=== PATIENT | male | born 1950 | race Caucasian/White ===

== ENCOUNTER 2017-09-21 07:03 | Outpatient (CLI) | payer MEDICARE, OTHER ==
--- NOTE | 2017-09-21 07:34 | ULT ---
SONOGRAM ABDOMINAL AORTA: HISTORY: Aneurysm screening. FINDINGS: Calcifications apparent within the aorta. Mid abdominal aorta is 1.7 cm. Good color and spectral Do ppler flow. IMPRESSION: Atherosclerosis. No sonographic evidence of abdominal aortic aneurysm. POS: SHAR
== END 2017-09-21 07:04 | disposition home or self-care (01) ==
LOC: ULT 07:03
PROVIDERS: ATTEND Family Medicine
DX: Z00.00 Encounter for general adult medical examination without abnormal findings (principal); Z13.6 Encounter for screening for cardiovascular disorders; I70.0 Atherosclerosis of aorta
CPT/HCPCS: 76775

== ENCOUNTER 2019-09-12 14:39 | Outpatient (CLI) | payer MEDICARE | END 2019-09-12 14:40 | disposition home or self-care (01) | LOC: CTENTCT 14:39 | PROVIDERS: ATTEND Otolaryngology Plastic Surgery within the Head & Neck | DX: J32.9 Chronic sinusitis, unspecified (principal) | CPT/HCPCS: 70486 ==

== ENCOUNTER 2019-09-23 14:47 | Outpatient (CLI) | payer MEDICARE ==
--- NOTE | 2019-09-23 15:16 | ULT ---
Testicular sonogram with duplex evaluation HISTORY: Left scrotal lump. FINDINGS: Right testicle measures up to 4.4 cm and left is 4.5 cm. Each has a normal appearance with good color and spectral Doppler flow. Small amount of microcalcifications in the right epididymis. Small amount of fluid within the right side of the scrotum. Within the left side of the scrotum, a few mildly distended venous structures becomes slightly more e ngorged upon Valsalva. IMPRESSION: Small left varicocele may account for the palpable lesion. No evidence of testicular mass or torsion. Small right hydrocele, a nonspecific finding.
== END 2019-09-23 14:48 | disposition home or self-care (01) ==
LOC: BICULT 14:47
PROVIDERS: ATTEND Family Medicine
DX: N50.89 Other specified disorders of the male genital organs (principal); I86.1 Scrotal varices; N43.3 Hydrocele, unspecified
CPT/HCPCS: 76870; 93976

== ENCOUNTER 2019-09-28 10:32 | Day surgery (SDC) | payer MEDICARE ==
[2019-09-27 15:03] VITALS: BMI 25.7
[~2019-09-28 10:32] MED LIST: Dexamethasone 20 MG/5 ML VIAL ONE; EPHEDRINE 25 MG/5 ML SYRINGE ONE; Lidocaine 1% PF 5 ML VIAL ONE; Ondansetron PF 4 MG/2 ML Vial ONE; PHENYLEPHRINE-NS 100 MCG/ML 10 ML SYRINGE ONE; PROPOFOL 200 MG/20 ML VIAL ONE; Succinylcholine Chloride 20 MG/ML 10 ml SYRINGE FS ONE
[2019-09-28] MEDS ORDERED: AFRIN NASAL MIST 15 ML BOT ONE ×2 (10:49→12:07)
[2019-09-28 11:07] LABS: Hemoglobin 13.5 g/dL (14.0-18.0); Platelet Count 210 thou/uL (130-400)
[2019-09-28 11:20] LABS: Anion Gap 12 mmol/L (10-20); BUN (Urea Nitrogen) 15 mg/dL (8.4-25.7); Calc. Creatinine Clearance 64 mL/min (70-130); Carbon Dioxide 27 mmol/L (23-31); Chloride 106 mmol/L (98-107); Estimated GFR-MDRD 57; Glucose 100 mg/dL (83-110); Potassium 4.3 mmol/L (3.5-5.1); Sodium 141 mmol/L (136-145)
[2019-09-28] MEDS ORDERED: Bacitracin Zinc Ointment 30 gm TUBE ONE (12:07)
[2019-09-28] MEDS ORDERED: Lidocaine 1% w/Epinephrine 1:100K 20 ML VIAL ONE (12:07)
[2019-09-28] MEDS ORDERED: Fentanyl 100 MCG/2 ML VIAL ONE (12:40)
[2019-09-28] MEDS ORDERED: Labetalol HCl 100 MG/20 ML VIAL ONE (13:57)
[2019-09-28] MEDS ORDERED: HYDROcodone/Acetaminophen 5/325 mg Tablet ONE (15:37)
--- NOTE | 2019-09-29 09:29 | OP ---
DATE OF PROCEDURE: 09/28/2019 PREOPERATIVE DIAGNOSES: 1. Chronic rhinosinusitis. 2. Nasal septal deviation. 3. Bilateral inferior turbinate hypertrophy. 4. Acquired nasal deformity. 5. 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 6. Nasal obstruction. POSTOPERATIVE DIAGNOSES: 1. Chronic rhinosinusitis. 2. Nasal septal deviation. 3. Bilateral inferior turbinate hypertrophy. 4. Acquired nasal deformity. 5. 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 6. Nasal obstruction. PROCEDURES PERFORMED: 1. Bilateral endoscopic sinus surgery, total ethmoidectomies with removal of tissue, including sphenoidotomies. 2. Bilateral endoscopic sinus surgery, frontal sinusotomies. 3. Bilateral endoscopic sinus surgery, maxillary antrostomies. 4. Nasoseptoplasty. 5. Bilateral inferior turbinate submucosal resection. 6. Bilateral repair of nasal wall defects. ESTIMATED BLOOD LOSS: 20 mL. COMPLICATIONS: None. ANESTHESIA: GETA. PROCEDURE IN DETAIL: Patient was taken to the operating room and placed supine on the table. General endotracheal anesthesia was obtained by the anesthesia staff. Then 1% lidocaine with 1:100,000 epinephrine was injected into the nasal septum as well as the inferior turbinates. The patient was prepped and draped in standard surgical fashion. The Afrin pledgets were then removed. A [place] incision was made on the left nasal septum. Submucoperichondrial dissection was performed bilaterally of the deviated portions of the septum, which included the maxillary crest and the crest deviation, as well as the mid portion of the septum. Cartilage and bony deviation was removed, leaving a generous caudal and dorsal strut. Any straight pieces of cartilage were then placed within the cartilage press, pressed, straightened, and then placed between the mucoperichondrial flaps, which were then closed using a 4-0 gut stitch. The inferior turbinates were then punctured with the submucosal Coblation machine, and 3 separate coblations were delivered to the anterior inferior portion of the inferior turbinates. Following this, the nasal cavity was irrigated. All debris was removed. An orogastric tube was placed. Gastric contents and Vásquez splints were then placed in the nasal cavity and sutured with a 3-0 silk stitch. Following this, 1% lidocaine with 1:100,000 epinephrine were injected into the middle turbinates and lateral nasal wall bilaterally. Following this, the 0-degree endoscope was used to visualize the middle turbinate and the middle turbinate was medially fractured using a [place] elevator. Following this, the uncinate process was identified and was examined. The uncinate process was noted to be inflamed and laterally displaced bilaterally. Following this, a ball-ended probe was used to anteriorly fracture the uncinate process bilaterally. Following this, the 0-degree microdebrider and the up-biting [place]akes[place] forceps were used to remove the uncinate process bilaterally. Following this, the natural maxillary sinus ostia was identified with the 0-degree endoscope and the ball-ended probe. The natural maxillary ostia were then widened using a 40-degree microdebrider and the straight [place]akes[place] forceps bilaterally. Following this, the ethmoidal bulla was identified bilaterally. A 0-degree microdebrider was used to puncture the ethmoidal bulla on its medial and inferior aspect bilaterally. Following this, the 0-degree microdebrider and the up-biting [place]akesley forceps were used to remove the ethmoidal bulla. Following this, the grand lamella was identified posterior to this area and was punctured using the 0-degree microdebrider bilaterally. Following this, the ethmoidal cells were opened from the posterior to the anterior using the 0-degree microdebrider, the 40-degree microdebrider and the up-biting Blakesley forceps bilaterally. Following this, the 45-degree endoscope and the 40-degree microdebrider blade were used to further remove the anterior ethmoidal cells to the level of the frontal sinus recess bilaterally. Following this, the 0-degree endoscope was advanced through the previous ethmoidectomies, where more tissue and necrotic bone was removed using the 0-degree microdebrider and the straight Blakesley forceps. This anterior sphenoid sinus wall was identified and was punctured into the sphenoid sinuses using the microdebrider bilaterally. The sphenoidotomies were then widened in a medial and inferior direction using the microdebrider bilaterally. Following this, 45-degree endoscope and the 40-degree microdebrider blade were used to further open the frontal recess cells and expose the frontal sinus ostia bilaterally. Following this, frontal sinus ostia were then widened using a 40-degree microdebrider blade bilaterally. Following this, a small incision was made into the nasal cavity in a transcartilaginous area in order to approach the lateral nasal wall and nasal bones. After the implant was then placed to support in an overlay fashion over the nasal bones supporting the lower lateral cartilages in lateral direction bilaterally. Following this, the incision was closed with a 6-0 chromic gut stitch. Following this, nasal cavity was irrigated. NasoPore packing was placed within the middle meatus. Vásquez splints were placed and secured. Job ID: [id number]
== END 2019-09-28 16:35 | disposition home or self-care (01) ==
LOC: SDC 10:32
PROVIDERS: ATTEND Otolaryngology Plastic Surgery within the Head & Neck
PROC: 09TL0ZZ Resection of Nasal Turbinate, Open Approach (ICD-10-PCS; principal; 2019-09-28)
PROC: 09SM0ZZ Reposition Nasal Septum, Open Approach (ICD-10-PCS; 2019-09-28)
PROC: 099T8ZZ Drainage of Left Frontal Sinus, Via Natural or Artificial Opening Endoscopic (ICD-10-PCS; 2019-09-28)
PROC: 099Q8ZZ Drainage of Right Maxillary Sinus, Via Natural or Artificial Opening Endoscopic (ICD-10-PCS; 2019-09-28)
PROC: 099R8ZZ Drainage of Left Maxillary Sinus, Via Natural or Artificial Opening Endoscopic (ICD-10-PCS; 2019-09-28)
PROC: 099S8ZZ Drainage of Right Frontal Sinus, Via Natural or Artificial Opening Endoscopic (ICD-10-PCS; 2019-09-28)
PROC: 09BX8ZZ Excision of Left Sphenoid Sinus, Via Natural or Artificial Opening Endoscopic (ICD-10-PCS; 2019-09-28)
PROC: 09BW8ZZ Excision of Right Sphenoid Sinus, Via Natural or Artificial Opening Endoscopic (ICD-10-PCS; 2019-09-28)
PROC: 09TV8ZZ Resection of Left Ethmoid Sinus, Via Natural or Artificial Opening Endoscopic (ICD-10-PCS; 2019-09-28)
PROC: 09TU8ZZ Resection of Right Ethmoid Sinus, Via Natural or Artificial Opening Endoscopic (ICD-10-PCS; 2019-09-28)
PROC: 09QK0ZZ Repair Nasal Mucosa and Soft Tissue, Open Approach (ICD-10-PCS; 2019-09-28)
DX: J32.9 Chronic sinusitis, unspecified (principal); J34.2 Deviated nasal septum; J34.3 Hypertrophy of nasal turbinates; J34.89 Other specified disorders of nose and nasal sinuses; I10 Essential (primary) hypertension; Z87.891 Personal history of nicotine dependence; Z79.899 Other long term (current) drug therapy
CPT/HCPCS: 36415; 80048; 85014; 85018; 85049; 93005; 93010; J1100; J2001; J2405; J2704; J3010

== ENCOUNTER 2020-02-03 20:48 | Observation (INO) | payer MEDICARE, OTHER ==
--- NOTE | 2020-02-03 21:55 | CT ---
CT HEAD WITHOUT CONTRAST: 02/03/20 INDICATIONS: Dizziness. Ventricles have normal size and position. No evidence of intracranial mass, hemorrhage or infarct. Si nuses are clear. No significant white matter abnormality. IMPRESSION: Unremarkable CT head. POS: AGW
[2020-02-03 21:56] LABS: #Eosinphils 0.2 thou/uL (0.0-0.7); #Lymphocytes 2.2 thou/uL (1.20-3.40); #Monocytes 0.5 thou/uL (0.11-0.59); #Neutrophils 5.9 thou/uL (1.40-6.50); %Basophils 0.4 % (0.0-1.0); %Eosinophils 1.9 % (0.0-10.0); %Lymphocytes 25.5 % (21.0-51.0); %Monocytes 5.6 % (0.0-10.0); %Neutrophils 66.6 % (42.0-75.0); Hemoglobin 13.4 g/dL (14.0-18.0); Mean Corpuscular HGB CONC 33.6 g/dL (32.0-36.0); Mean Corpuscular Hemoglobin 29.7 pg (27.0-31.0); Mean Corpuscular Volume 88.3 fL (78.0-98.0); Mean Platelet Volume 7.8 fL (7.4-10.4); Platelet Count 213 thou/uL (130-400); RBC Distribution Width 12.3 % (11.5-14.5); Red Blood Cell (RBC) Count 4.51 mill/uL (4.70-6.10); White Blood Cell (WBC) Count 8.8 thou/uL (4.8-10.8)
--- NOTE | 2020-02-03 21:58 | RAD ---
PA CHEST: 02/03/20 INDICATIONS: Dizziness. Borderline cardiomegaly. The lungs appear clear of infiltrate. Heart and mediastinum unremarkable. IMPRESSION: No acute lung process. POS: AGW
[2020-02-03 22:18] LABS: ALT (SGPT) 21 U/L (8-55); AST (SGOT) 22 U/L (5-34); Albumin 4.3 g/dL (3.4-4.8); Alkaline Phosphatase 113 U/L (40-110); Anion Gap 14 mmol/L (10-20); BUN (Urea Nitrogen) 24 mg/dL (8.4-25.7); Bilirubin, Total 0.2 mg/dL (0.2-1.2); CK (CPK) 80 U/L (30-200); Calc. Creatinine Clearance 0 mL/min (70-130); Calcium 8.8 mg/dL (7.8-10.44); Carbon Dioxide 27 mmol/L (23-31); Chloride 103 mmol/L (98-107); Estimated GFR-MDRD 47; Globulin 2.1 g/dL (2.4-3.5); Glucose 149 mg/dL (83-110); Lipase 34 U/L (8-78); Potassium 4.6 mmol/L (3.5-5.1); Protein, Total 6.4 g/dL (5.8-8.1); Sodium 139 mmol/L (136-145)
[2020-02-04] MEDS ORDERED: Aspirin 325 MG TAB ONE (00:32)
[2020-02-04 00:52] LABS: Bilirubin Negative (Negative); Blood, Urine Negative (Negative); Clarity Clear (Clear); Glucose, Urine (Dipstick) Normal (Negative); Ketone, Urine Negative (Negative); Leukocyte Negative Leu/uL (Negative); Nitrite Negative (Negative); Protein, Urine (Dipstick) Negative (Neg-Trace); Specific Gravity, Urine 1.021 (1.002-1.036); Urobilinogen Normal mg/dL (Less than 2); pH, Urine 6.5 (5.0-9.0)
[2020-02-04] MEDS ORDERED: Acetaminophen 325 MG TAB PO PRN (01:44)
[2020-02-04] MEDS ORDERED: Acetaminophen 650 MG Suppository PR PRN (01:44)
[2020-02-04] MEDS ORDERED: Sodium Chloride 0.9% 1,000 ML IV SCH (01:45)
[2020-02-04 02:23] LABS: Troponin I 0.012 ng/mL (< 0.028)
--- NOTE | 2020-02-04 03:15 | HP ---
TIME OF ASSESSMENT: 0100 hours. PRIMARY CARE PHYSICIAN: Dr. Nicolas Torres. CHIEF COMPLAINT: Dizziness. HISTORY OF PRESENT ILLNESS: Mr. Rausch is a 70-year-old gentleman who states that he was at [employer] and sat down next to his when he developed sudden onset of dizziness. He states the lights in the [employer] were spinning around him, and he turned to his after a few minutes and attempted to let her know he needed help getting back to his car. The patient states he had difficulty finding his words for the first few seconds, and then eventually was able to communicate with his . Denies having any slurred speech or difficulty finding his words. Denies any extremity numbness or weakness. He was unable to walk without assistance. His gait was off. He states the symptoms as well as the dizziness and nausea persisted for approximately 3 hours. He had to close his eyes while in route to the hospital to avoid spinning lights around him. Denies any vomiting. Reports a very mild headache. No abdominal pain. No recent fevers, chills, or sweats. All other review of systems are negative. EMERGENCY DEPARTMENT COURSE: In the emergency department, the patient had an EKG done, showed normal sinus rhythm with heart rate of 59. No ST changes or T-wave abnormalities. Laboratory studies done showing white count of 8.8, hemoglobin 13.4, hematocrit 39.8. Sodium 139, potassium 4.6, BUN 24, creatinine 1.46, GFR 47, glucose 149. LFTs unremarkable. Alkaline phosphatase 113. Albumin 4.3. Troponin negative. IMAGING DATA: CT of the brain done 02/03/2020, demonstrated unremarkable CT head. The patient was given 325 mg of aspirin and admitted for further CVA/TIA workup. PAST MEDICAL HISTORY: Hypertension. PAST SURGICAL HISTORY: 1. Tonsillectomy. 2. Facial surgery. 3. Sinus surgery. SOCIAL HISTORY: The patient denies any tobacco use, alcohol consumption, or illicit drug use. FAMILY HISTORY: Noncontributory. ALLERGIES: NO KNOWN DRUG ALLERGIES. CURRENT MEDICATIONS: Lisinopril. PHYSICAL EXAMINATION: GENERAL: The patient appears well developed, well nourished. He is in no acute distress. VITAL SIGNS: Temperature 97.6, pulse 60, blood pressure 174/91, respirations 16, and O2 saturation 99% on room air. HEENT: Normocephalic and atraumatic. Pupils are equal, round, reactive to light. Extraocular movements intact. Peripheral kaplan intact. Oropharynx is clear. NECK: Supple. LUNGS: Clear to auscultation bilaterally without any wheezes, rales, rhonchi. CARDIAC: Regular rate and rhythm. ABDOMEN: Soft, nontender, nondistended. Normoactive bowel sounds present. No guarding or rigidity. No renal angle tenderness. EXTREMITIES: No lower leg swelling or edema. NEUROLOGIC: Alert and oriented x3. SKIN: Warm and dry. NEUROLOGIC: Alert and oriented x3. No neuro deficits on exam. Power 5/5 in all limbs. INVESTIGATIONS: As mentioned above in HPI. IMPRESSION AND PLAN: Mr. Rausch is a pleasant 70-year-old gentleman, who is being admitted for management of the following. 1. Transient ischemic attack, rule out. The patient with dizziness, described as spinning sensation and nausea that lasted approximately 3 hours. He is being admitted for transient ischemic attack workup. We will have echo, carotid Doppler, and brain imaging. Consult placed to Neurology. The patient is asymptomatic at present. 2. Hypertension. Monitor blood pressure and reconcile home medications once verified. 3. Acute kidney injury. Creatinine 1.46 compared to 1.25 in September. We will give gentle hydration. Continue to monitor renal function. Obtain orthostatic blood pressures. 4. Gastrointestinal prophylaxis with famotidine. 5. Deep venous thrombosis prophylaxis with mechanical sequential compression devices. 6. Full code status. Surrogate decision maker is his , Vania Rausch. Case was discussed with attending who agrees with plan of care as described above. Job ID: [id number]
[2020-02-04 03:55] VITALS: BMI 25.9
[2020-02-04 05:02] LABS: #Basophils 0.1 thou/uL (0.0-0.2); #Eosinphils 0.1 thou/uL (0.0-0.7); #Monocytes 0.6 thou/uL (0.11-0.59); #Neutrophils 6.3 thou/uL (1.40-6.50); %Basophils 0.8 % (0.0-1.0); %Eosinophils 0.6 % (0.0-10.0); %Monocytes 6.3 % (0.0-10.0); %Neutrophils 70.4 % (42.0-75.0); Hemoglobin 12.7 g/dL (14.0-18.0); Mean Corpuscular HGB CONC 32.9 g/dL (32.0-36.0); Mean Corpuscular Hemoglobin 29.3 pg (27.0-31.0); Mean Corpuscular Volume 89.2 fL (78.0-98.0); Mean Platelet Volume 7.8 fL (7.4-10.4); Platelet Count 201 thou/uL (130-400); RBC Distribution Width 12.4 % (11.5-14.5); Red Blood Cell (RBC) Count 4.32 mill/uL (4.70-6.10); White Blood Cell (WBC) Count 8.9 thou/uL (4.8-10.8)
[2020-02-04 05:22] LABS: Anion Gap 10 mmol/L (10-20); BUN (Urea Nitrogen) 23 mg/dL (8.4-25.7); Calc. Creatinine Clearance 66 mL/min (70-130); Carbon Dioxide 28 mmol/L (23-31); Cardiac Risk 5.4 (Less than 4.5); Chloride 105 mmol/L (98-107); Cholesterol 211 mg/dl (< 200 Desired); Estimated GFR-MDRD 60; Glucose 110 mg/dL (83-110); HDL Cholesterol 39 mg/dL (>60 Neg Risk); LDL Cholesterol, Calculated 154 mg/dL; Potassium 4.7 mmol/L (3.5-5.1); Sodium 138 mmol/L (136-145); Triglycerides 90 mg/dL (Less than 150)
[2020-02-04 05:29] LABS: Troponin I 0.017 ng/mL (< 0.028)
[2020-02-04 06:37] LABS: Bacteria/HPF None Seen HPF (None Seen); Bilirubin Negative (Negative); Blood, Urine Negative (Negative); Clarity Clear (Clear); Glucose, Urine (Dipstick) Normal (Negative); Ketone, Urine Negative (Negative); Leukocyte Negative Leu/uL (Negative); Mucous/LPF 1+ LPF (<2+); Nitrite Negative (Negative); Protein, Urine (Dipstick) Negative (Neg-Trace); RBC/HPF 0-3 HPF (0-3); Specific Gravity, Urine 1.021 (1.002-1.036); Squamous Epithelial None Seen HPF (0-3); Urobilinogen Normal mg/dL (Less than 2); WBC/HPF 0-3 HPF (0-3); pH, Urine 6.5 (5.0-9.0)
[2020-02-04 06:41] LABS: Urine Culture Reflex No No
[2020-02-04] MEDS ORDERED: Famotidine 20 MG TAB PO SCH (09:00)
[2020-02-04] MEDS ORDERED: Aspirin 81 mg Enteric Coated Tablet PO SCH (09:00)
--- NOTE | 2020-02-04 11:34 | RAD ---
HANLEY VIEW OF SKULL: HISTORY: MRI clearance. FINDINGS: Sinuses are clear. There is a very small radiopaque foreign body along the superior-most aspect of t he left frontal sinus in the frontal bone region remote from the orbit. No additional foreign bodies are seen. IMPRESSION: Small metallic foreign body along the superior aspect of the left frontal sinus. POS: OFF
--- NOTE | 2020-02-04 11:39 | MRI ---
MRI OF BRAIN PERFORMED WITHOUT CONTRAST ENHANCEMENT: HISTORY: TIA. Syncope. COMPARISON: CT examination done yesterday. FINDINGS: There is mild ventricular and sulcal prominence. Artifact related to the metal over the left frontal sinus region does slightly degrade detail in this area. No hemorrhage or mass effect identified. T he diffusion weighted sequence did not show any evidence for acute infarct. Pituitary region appears unremarkable. Visualized sinuses are clear. IMPRESSION: No acute intracranial abnormalities. POS: OFF
[2020-02-04 12:49] LABS: SARS-CoV-2 MS2 Positive; SARS-CoV-2 N Gene Negative; SARS-CoV-2 S Gene Negative; SARS-CoV-2 by NAA Not Detected (NotDetected); SARS-CoV-2 orf1ab Negative
--- NOTE | 2020-02-04 12:50 | ULT ---
CAROTID DUPLEX ULTRASOUND: INDICATION: Evaluate for TIA. COMPARISON: None. FINDINGS: There is mild intimal thickening of the common carotid arteries bilaterally. Peak systolic velocity in the right ICA is 56.7 cm/s and the right CCA is 68.4 cm/s. Right IC:CC rat io is 0.83. Peak systolic velocity in the left ICA is 50.1 cm/s and the left CCA is 92.9 cm/s. Left IC:CC ratio is 0.54. Antegrade flow is seen within both vertebral arteries. IMPRESSION: No hemodynamically significant stenosis. POS: BH
--- NOTE | 2020-02-04 13:08 | CON ---
NEUROLOGY CONSULTATION DATE OF CONSULTATION: 02/04/2020 REASON FOR CONSULTATION: Transient ischemic attack. HISTORY OF PRESENT ILLNESS: Mr. Bill Rausch is a 70-year-old male, with medical history significant for hypertension, presented to the emergency room with a spell of acute dizziness. Per the patient, he was at a [employer] and was sitting down with his when he developed acute onset dizziness as if the room is spinning in front of his eyes. He told his that he needs help getting to the car. The spell lasted for about 2 hours, and during that time, he has difficulty finding words for few seconds and was unable to communicate with his properly for first few seconds and those symptoms resolved, but the sensation of room spinning in front of his eyes with nausea persisted for about 3 hours. He had to close his eyes and brought to the hospital because of this sensation. The patient denies any focal paresthesias, focal weakness,, nausea, vomiting, headache, chest pain, abdominal pain, blurred vision, loss of vision, loss of consciousness, or chest pain associated with this episode. In the emergency room, the patient had a head CT, which was unremarkable for acute intracranial process. Labs were essentially unremarkable. He was given 325 mg of aspirin and admitted for further evaluation of transient ischemic attack. REVIEW OF SYSTEMS: All 10 systems were reviewed and were negative except pertinent positives and negatives mentioned in the HPI. PAST MEDICAL HISTORY: Hypertension. PAST SURGICAL HISTORY: Facial surgery, sinus surgery, tonsillectomy. SOCIAL HISTORY: and lives with his . Denies smoking, alcohol, or illegal drug use. FAMILY HISTORY: No significant family history. ALLERGIES: NO KNOWN DRUG ALLERGIES. CURRENT HOME MEDICATIONS: Lisinopril. PHYSICAL EXAMINATION: VITAL SIGNS: Blood pressure was 170/90, pulse 80, respiratory rate 18. GENERAL: Alert and awake male, in no acute distress. CVS: Regular rate and rhythm. CHEST: Clear. ABDOMEN: Soft. NECK: Supple. NEUROLOGIC: Mental status, the patient is alert and oriented to person, place, and time. Speech is clear. Fund of knowledge is appropriate. Recent and remote memory, intact. Cranial nerves 2 through 12 are intact. Motor, muscle tone and bulk are normal. Strength 5/5 bilaterally. Sensory intact. Cerebellar, finger-nose testing intact. Gait deferred due to the patient's safety reasons. DATA REVIEWED: I reviewed the head CT, which was negative for acute intracranial pathology. Labs were essentially unremarkable. ASSESSMENT AND PLAN: Mr. Bill Rausch is a pleasant 70-year-old male, consulted for an episode of dizziness, which lasted for about 3 hours and resolved on its own, most likely a transient ischemic attack. MRI of the brain reviewed, which was negative for acute intracranial pathology. Echocardiogram results noted, which were essentially unremarkable with left ventricular ejection fraction of 55% to 60%, and no thrombus or PFO. Carotid Dopplers pending. . Telemetry. Neuro checks every 4 hours. Strict control of blood pressure and blood glucose. Check fasting lipid profile, hemoglobin A1c, and TSH. Recommend aspirin and high-intensity statin for secondary stroke prevention. PT/OT/ Speech. Continue medical management per primary team. Plan discussed in detail with the patient. We will continue to follow. Thank you for the consult. Job ID: [id number] MTDD
[2020-02-04 15:54] VITALS: TEMP 98.2
[2020-02-04 16:06] VITALS: BP 112/64
--- NOTE | 2020-02-04 19:05 | DIS ---
DATE OF ADMISSION: 02/04/2020 DATE OF DISCHARGE: 02/04/2020 DISCHARGE DIAGNOSES: 1. Transient ischemic attack. 2. Vertigo. 3. Sinus bradycardia. HOSPITAL COURSE: The patient is a 70-year-old male, who initially presented to the hospital with complaints of vertigo, described it as room spinning and also could not get a few words out. At this time, he was evaluated for stroke. His MRI brain was negative. He was seen by Neurology. His carotid Dopplers were normal. He also had an echocardiogram, which indicated an EF of 55% to 60% with no evidence of valvular stenosis. However, while he was in the hospital, he had about 10 seconds of sinus bradycardic; however, the patient was completely asymptomatic. I did talk with the patient if he had a syncopal or presyncopal episode, he denied that. He states that he is pretty active and is able to do all his work without any issues. The patient states that he does wear hearing aids and he recently had his hearing aid adjusted a few days prior to this incident. Denies any being sick recently. I have recommended the patient to follow up with his primary. 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 He was completely asymptomatic. I do not think that is related to his current admission. He can follow up with his primary and also Cardiology for possible maybe loop monitor. He is not on any medications that could cause him to have sinus bradycardia. MEDICATIONS: He will be started on aspirin and a statin and also he will continue his lisinopril. PHYSICAL EXAMINATION: VITAL SIGNS: On discharge, temperature of 98.2, pulse 62, respiratory rate 16, oxygen saturation 98% on room air, and blood pressure 128/71. GENERAL: He is awake, alert, and oriented x3. Does not appear in distress. CV: S1 and S2 present. No murmurs, rubs, or gallops. Again, I did explain to the patient that if his symptoms recur, he needs to come back to the ER. However, he will follow up with his primary and also with Cardiology for his 10 seconds of sinus bradycardia, which was completely asymptomatic. Job ID: [id number]
[2020-02-04] MEDS ORDERED: Atorvastatin Calcium 40 MG TAB PO SCH (21:00)
== END 2020-02-04 18:00 | disposition home or self-care (01) ==
LOC: ERS 20:48 → 2SE 02-04 01:37
PROVIDERS: ADMIT Family Medicine; ATTEND Family Medicine
DX: G45.9 Transient cerebral ischemic attack, unspecified (principal); R00.1 Bradycardia, unspecified; I10 Essential (primary) hypertension; N17.9 Acute kidney failure, unspecified; Z79.899 Other long term (current) drug therapy
CPT/HCPCS: 70250; 70450; 70551; 71045; 80048; 80053; 80061; 81001; 81003; 82550; 83690; 84484 ×3; 85025 ×2; 93005; 93306; 93880; 97139 ×2; 97535; U0003; 36415; 87635; 96360; 96361; G0378